=== PATIENT | female | born 1995 | race Caucasian/White ===

== ENCOUNTER 2020-03-25 13:35 | Emergency (ER) | payer SELFPAY ==
[~2020-03-25] VITALS: Ht 162.6 cm; Wt 70.0 kg
[2020-03-25] MEDS ORDERED: PROPOFOL 50 ML IV ONE (13:50)
[2020-03-25 14:26] VITALS: BP 143/87
--- NOTE | 2020-03-25 14:56 | PHYS DOC ---
Past Medical History Past Medical History: No Pertinent History Past Surgical History: No Surgical History Smoking Status: Current Every Day Smoker Alcohol Use: Occasionally General Adult EDM: Chief Complaint: ANKLE PROBLEM HPI: HPI: Patient is a 25 year old female who presents with was trying to put a leash or color on her dog when he pulled her and she rolled her left foot and ankle. This happened last night. She states that she can walk and put some pressure on the extremity. She denies any numbness or tingling. Patient has lateral ankle swelling 2+ and and 1+ lateral foot swelling. No bruising or deformity is noted. No laxity in the joints. Patient states just sitting is a 4 out of 10 but when she stands it is a 8 out of 10. Review of Systems: Review of Systems: Musculoskeletal: Denies back pain. Right ankle and foot joint pain. [] Heart Score: Risk Factors: Risk Factors: DM, Current or recent (<one month) smoker, HTN, HLP, family history of CAD, obesity. Risk Scores: Score 0 - 3: 2.5% MACE over next 6 weeks - Discharge Home Score 4 - 6: 20.3% MACE over next 6 weeks - Admit for Clinical Observation Score 7 - 10: 72.7% MACE over next 6 weeks - Early Invasive Strategies Current Medications: Current Medications Medications (Trade) Dose Ordered Sig/Nini Start Time Stop Time Status Last Admin Dose Admin Ibuprofen (Motrin) 600 mg 1X ONCE 03/25/20 15:00 03/25/20 15:01 Propofol 50 ml @ As Directed STK-MED ONCE 03/25/20 13:50 03/25/20 13:51 Cancel Allergies: Allergies: Allergies Coded Allergies Type Severity Reaction Last Updated Verified latex Allergy Unknown 03/25/20 Yes Physical Exam: PE: Constitutional: Well developed, well nourished, no acute distress, non-toxic appearance. [] HENT: Normocephalic, atraumatic, bilateral external ears normal, oropharynx moist, no oral exudates, nose normal. [] Eyes: PERRLA, EOMI, conjunctiva normal, no discharge. [] Neck: Normal range of motion, no tenderness, supple, no stridor. [] Cardiovascular:Heart rate regular rhythm, no murmur [] Lungs & Thorax: Bilateral breath sounds clear to auscultation [] Abdomen: Bowel sounds normal, soft, no tenderness, no masses, no pulsatile masses. [] Skin: Warm, dry, no erythema, no rash. [] Back: No tenderness, no CVA tenderness. [] Extremities: right lateral ankle tenderness, no cyanosis, no clubbing, limited in ankle ROM intact, 2+ edema. [] Neurologic: Alert and oriented X 3, normal motor function, normal sensory function, no focal deficits noted. [] Psychologic: Affect normal, judgement normal, mood normal. [] Current Patient Data: Vital Signs: Vital Signs Date Time Temp Pulse Resp B/P (MAP) Pulse Ox O2 Delivery O2 Flow Rate FiO2 03/25/20 14:26 98.2 103 18 143/87 (105) 96 Room Air 98.2 EKG: EKG: [] Radiology/Procedures: Radiology/Procedures: [] Impression: [facility] [address] [place] [address] IMAGING REPORT Signed PATIENT: PRASHANTH MELGAR RACCOUNT: [id number] : 1995 LOCATION: ER AGE: 25 SEX: F EXAM STATUS: REG ER ORD. PHYSICIAN: TAMANNA PANDYA APRN REASON: pain PROCEDURE: ANKLE LEFT 3V Left ankle x-rays 3 views HISTORY: Pain FINDINGS: Only apparent on the lateral view there is an acute traumatic coronal oriented fracture of the posterior tibial plafond with intra-articular extension at the tibiotalar joint. Multipartite os peroneus adjacent to cuboid is noted no discrete bone donor site to suggest a fracture or dislocation. The talus and lateral malleolus are intact. Soft tissue swelling and edema. IMPRESSION: Acute traumatic intra-articular fracture of the posterior tibial plafond as described above. Left foot x-rays 3 views HISTORY: Pain Findings: No fracture or dislocation of the foot. Multipartite os peroneus, no bone donor site to suggest a fracture at this region adjacent of the cuboid. Posterior tibial plafond intra-articular fracture of the tibiotalar joint as described in the ankle report. IMPRESSION: No acute osseous injury of the foot. Electronically signed by: Olive Whitehead MD (03/25/2020 3:20 PM) [id number] DICTATED and SIGNED BY: OLIVE WHITEHEAD MD DATE: 03/25/20 1520 Course & Med Decision Making: Course & Med Decision Making Pertinent Labs and Imaging studies reviewed. (See chart for details) Alert and oriented. Speaks in full clear sentences. Ambulatory but limping on the left lower extremity. No laxity in the joint. Range of motion is full but slightly limited due to pain in the ankle. Patient can wiggle her toes. Positive and strong pedal pulse. Skin pink warm and dry. Less than 3 cap refill. Denies any numbness or tingling. Tenderness to the lateral ankle although patient states she has some slight medial ankle pain too. IMPRESSION: Acute traumatic intra-articular fracture of the posterior tibial plafond as described above. Patient is placed in a stirrup and posterior splint. I have spoken to Dr Gunter and he states he wants to see her . Splint assessment: Neurovascularly intact post splint replacement with good fit. Patient's extremity symptoms have stabilized well they have been evaluated in the department and are appropriate for outpatient follow-up. No evidence of compartment syndrome, neurologic injury, vascular injury, open joint, open fracture, tendon laceration, or foreign body. [] Dragon Disclaimer: Dragon Disclaimer: This electronic medical record was generated, in whole or in part, using a voice recognition dictation system. Departure Departure Impression: Primary Impression: Tibia fracture Qualified Codes: S82.875A - Nondisplaced pilon fracture of left tibia, initial encounter for closed fracture Disposition: HOME, SELF-CARE Condition: STABLE Referrals: NO PCP (PCP) CIRA GUNTER MD Patient Instructions: Tibial Fracture, Adult Additional Instructions: Follow-up at the orthopedic clinic with Dr Gunter this coming . Call tomorrow morning to get your appointment and let them know that he states that you are to see him . Take medication with food and as prescribed. Use ice and elevation to help with swelling and pain. Nonweightbearing. Scripts Hydrocodone/Apap 5-325 (NORCO 5-325 TABLET) 1 Each Tablet 1 TAB PO PRN Q6HRS PRN for PAIN, #12 TAB 0 Refills Prov: TAMANNA PANDYA APRN 03/25/20 TAMANNA PANDYA APRN March 25, 2020 14:56
[2020-03-25] MEDS ORDERED: IBUPROFEN 200 MG TABLET. PO ONE (15:00)
--- NOTE | 2020-03-25 15:23 | RAD ---
Left ankle x-rays 3 views HISTORY: Pain FINDINGS: Only apparent on the lateral view there is an acute traumatic coronal oriented fracture of the posterior tibial plafond with intra-articular extension at the tibiotalar joint. Multipartite os peroneus adjacent to cuboid is noted no discrete bone donor site to suggest a fracture or dislocation. The talus and lateral malleolus are intact. Soft tissue swelling and edema. IMPRESSION: Acute traumatic intra-articular fracture of the posterior tibial plafond as described above. Left foot x-rays 3 views HISTORY: Pain Findings: No fracture or dislocation of the foot. Multipartite os peroneus, no bone donor site to suggest a fracture at this region adjacent of the cuboid. Posterior tibial plafond intra-articular fracture of the tibiotalar joint as described in the ankle report. IMPRESSION: No acute osseous injury of the foot. Electronically signed by: Rachid Whitehead MD (03/25/2020 3:20 PM) [id number]
[2020-03-25] MEDS ORDERED: HYDR-3164 PO (16:20)
== END 2020-03-25 17:20 | disposition home or self-care (01) ==
LOC: ER 13:35
DX: S82.875A Nondisplaced pilon fracture of left tibia, initial encounter for closed fracture (principal); R60.0 Localized edema; F17.200 Nicotine dependence, unspecified, uncomplicated; Z91.040 Latex allergy status; W54.8XXA Other contact with dog, initial encounter; Y93.89 Activity, other specified; Y92.89 Other specified places as the place of occurrence of the external cause; Y99.8 Other external cause status
CPT/HCPCS: 29125; 73610; 73630; 99284